=== PATIENT | male | born 1945 | race Caucasian/White ===

== ENCOUNTER 2022-03-16 11:07 | Inpatient (IN) | payer OTHER, MEDICARE ==
[~2022-03-16 11:07] MED LIST: Iopamidol 300 61% 100 ML VIAL FS ONE
[2022-03-16] MEDS ORDERED: Cefepime 2 GM VIAL ONE (12:01)
[2022-03-16 12:12] LABS: #Monocytes 0.5 10x3/uL (0.0-1.1); #Neutrophils 3.4 10x3/uL (1.5-8.4); %Basophils 0.2 % (0.0-2.0); %Eosinophils 0.4 % (0.0-6.0); %Lymphocytes 23.5 % (18.0-47.0); %Monocytes 9.3 % (0.0-10.0); %Neutrophils 66.2 % (40.0-75.0); Hemoglobin 9.3 g/dL (13.5-17.5); Mean Corpuscular HGB CONC 33.3 g/dL (32.0-36.0); Mean Corpuscular Hemoglobin 32.1 pg (27.0-33.0); Mean Corpuscular Volume 96.2 fl (81.2-95.1); Mean Platelet Volume 9.2 fl (7.4-10.4); Platelet Count 314 10x3/uL (150-450); RBC Distribution Width 14.5 % (11.5-14.5); White Blood Cell (WBC) Count 5.1 10x3/uL (3.5-10.5)
[2022-03-16 12:20] LABS: ALT (SGPT) 13 U/L (8-55); AST (SGOT) 19 U/L (5-34); Albumin 3.5 g/dL (3.4-4.8); Alkaline Phosphatase 116 U/L (40-110); Anion Gap 17 mmol/L (10-20); BUN (Urea Nitrogen) 14 mg/dL (8.4-25.7); Bilirubin, Total 0.8 mg/dL (0.2-1.2); CK (CPK) 34 U/L (30-200); Calc. Creatinine Clearance 0 mL/min (70-130); Calcium 8.6 mg/dL (7.8-10.44); Carbon Dioxide 21 mmol/L (23-31); Chloride 107 mmol/L (98-107); Globulin 2.9 g/dL (2.4-3.5); Glucose 113 mg/dL (83-110); Magnesium 1.5 mg/dL (1.6-2.6); Potassium 3.8 mmol/L (3.5-5.1); Protein, Total 6.4 g/dL (5.8-8.1); Sodium 141 mmol/L (136-145)
[2022-03-16] MEDS ORDERED: Magnesium 2 GM/50 ML BAG (IN WATER) ONE (13:16)
[2022-03-16 15:14] LABS: Lactic Acid 2.1 mmol/L (0.5-2.2)
[2022-03-16] MEDS ORDERED: Ondansetron ODT 4 MG TAB PO PRN (17:59)
[2022-03-16] MEDS ORDERED: Ondansetron PF 4 MG/2 ML Vial IVP PRN (17:59)
[2022-03-16] MEDS ORDERED: Acetaminophen 325 MG TAB PO PRN (18:41)
[2022-03-16] MEDS: Sodium Chloride 0.9% 1,000 ML IV SCH (19:56)
[2022-03-17 00:01] LABS: Bilirubin Neg (Negative); Blood, Urine Negative (Negative); Clarity Clear (Clear); Glucose, Urine (Dipstick) Normal (Negative); Ketone, Urine Negative (Negative); Leukocyte Negative (Negative); Nitrite Negative (Negative); Protein, Urine (Dipstick) Negative (Neg-Trace); Urobilinogen Normal mg/dL (Less than 2)
[2022-03-17 04:50] LABS: ALT (SGPT) 11 U/L (8-55); AST (SGOT) 14 U/L (5-34); Albumin 2.8 g/dL (3.4-4.8); Alkaline Phosphatase 88 U/L (40-110); Anion Gap 11 mmol/L (10-20); BUN (Urea Nitrogen) 13 mg/dL (8.4-25.7); Bilirubin, Total 0.5 mg/dL (0.2-1.2); Calc. Creatinine Clearance 58 mL/min (70-130); Calcium 7.7 mg/dL (7.8-10.44); Carbon Dioxide 23 mmol/L (23-31); Chloride 109 mmol/L (98-107); Globulin 2.2 g/dL (2.4-3.5); Glucose 75 mg/dL (83-110); Iron 58 ug/dL (65-175); Iron Binding Capacity, Total 163 mcg/dL (261-462); Magnesium 1.8 mg/dL (1.6-2.6); Potassium 3.1 mmol/L (3.5-5.1); Sodium 140 mmol/L (136-145)
[2022-03-17 05:05] LABS: #Monocytes 0.5 10x3/uL (0.0-1.1); #Neutrophils 2.6 10x3/uL (1.5-8.4); %Basophils 0.3 % (0.0-2.0); %Eosinophils 0.3 % (0.0-6.0); %Lymphocytes 19.6 % (18.0-47.0); %Monocytes 11.7 % (0.0-10.0); %Neutrophils 67.8 % (40.0-75.0); Hemoglobin 7.5 g/dL (13.5-17.5); Mean Corpuscular HGB CONC 34.1 g/dL (32.0-36.0); Mean Corpuscular Hemoglobin 32.5 pg (27.0-33.0); Mean Corpuscular Volume 95.2 fl (81.2-95.1); Mean Platelet Volume 9.2 fl (7.4-10.4); Platelet Count 209 10x3/uL (150-450); RBC Distribution Width 14.6 % (11.5-14.5); Red Blood Cell (RBC) Count 2.31 10x6/uL (4.32-5.72); White Blood Cell (WBC) Count 3.8 10x3/uL (3.5-10.5)
[2022-03-17 05:13] LABS: Ferritin 261.56 ng/mL (22-322)
[2022-03-17] MEDS ORDERED: Electrolyte Replacement Protocol 1 EACH FS SCH (08:15)
[2022-03-17] MEDS: Ferrous Sulfate 325 MG TAB PO SCH (08:30)
[2022-03-17] MEDS: Sodium Chloride 0.9% 1,000 ML IV SCH (08:30)
[2022-03-17] MEDS: Multivit, Therapeutic 1 TAB PO SCH (08:30)
[2022-03-17] MEDS: Aspirin 81 mg Enteric Coated Tablet PO SCH (08:31)
[2022-03-17] MEDS: Lisinopril 20 MG TAB PO SCH (08:31)
[2022-03-17] MEDS ORDERED: Potassium Chloride 20 MEQ TAB PO SCH (09:00)
[2022-03-17] MEDS ORDERED: Magnesium 2 GM/50 ML(in water) 2 GM in Premix Bag 1 BAG IVPB SCH (09:00)
[2022-03-17 10:01] LABS: SARS-CoV-2 NAA Rapid Test Not Detected (NotDetected)
[2022-03-17] MEDS ORDERED: Iron, Sodium Ferric Gluconate 250 MG in Sodium Chloride 0.9% 250 ML 250 ML IVPB SCH (12:00)
[2022-03-17 15:41] LABS: Hemoglobin 10.3 g/dL (13.5-17.5)
[2022-03-17 16:01] LABS: ALT (SGPT) 7 U/L (8-55); AST (SGOT) 14 U/L (5-34); Albumin 2.5 g/dL (3.4-4.8); Alkaline Phosphatase 78 U/L (40-110); Anion Gap 13 mmol/L (10-20); BUN (Urea Nitrogen) 12 mg/dL (8.4-25.7); Bilirubin, Total 0.3 mg/dL (0.2-1.2); Calc. Creatinine Clearance 51 mL/min (70-130); Calcium 7.4 mg/dL (7.8-10.44); Carbon Dioxide 16 mmol/L (23-31); Chloride 112 mmol/L (98-107); Globulin 2.2 g/dL (2.4-3.5); Glucose 125 mg/dL (83-110); Magnesium 2.5 mg/dL (1.6-2.6); Potassium 3.8 mmol/L (3.5-5.1); Protein, Total 4.7 g/dL (5.8-8.1); Sodium 137 mmol/L (136-145)
[2022-03-17 16:07] LABS: Troponin I 0.011 ng/mL (< 0.028)
[2022-03-17] MEDS: Mometasone/Formoterol 60 PUFF AER INH SCH (19:10)
[2022-03-17] MEDS: DULoxetine 30 MG CAP PO SCH (21:10)
[2022-03-17] MEDS: Atorvastatin Calcium 10 MG TAB PO SCH (21:10)
[2022-03-17] MEDS: Pantoprazole 40 MG VIAL IVP SCH (21:10)
[2022-03-18] MEDS: Sodium Chloride 0.9% 1,000 ML IV SCH ×2 (00:26→10:56)
[2022-03-18] MEDS: Vancomycin 25 MG/ML Oral SOLN PO SCH ×4 (01:35→20:53)
[2022-03-18] MEDS: Azithromycin 250 MG TAB PO SCH (01:35)
[2022-03-18] MEDS ORDERED: Azithromycin 200 MG/5 ML Oral Suspension PO SCH (02:00)
[2022-03-18 04:43] LABS: Hemoglobin 12.6 g/dL (13.5-17.5); Mean Corpuscular Volume 94.2 fl (81.2-95.1); Mean Platelet Volume 9.6 fl (7.4-10.4); Platelet Count 225 10x3/uL (150-450); RBC Distribution Width 15.6 % (11.5-14.5); Red Blood Cell (RBC) Count 3.94 10x6/uL (4.32-5.72); White Blood Cell (WBC) Count 11.3 10x3/uL (3.5-10.5)
[2022-03-18 05:42] LABS: Anion Gap 14 mmol/L (10-20); BUN (Urea Nitrogen) 16 mg/dL (8.4-25.7); Calc. Creatinine Clearance 30 mL/min (70-130); Carbon Dioxide 16 mmol/L (23-31); Chloride 112 mmol/L (98-107); Glucose 147 mg/dL (83-110); Magnesium 2.4 mg/dL (1.6-2.6); Potassium 3.8 mmol/L (3.5-5.1); Sodium 138 mmol/L (136-145)
[2022-03-18] MEDS: Mometasone/Formoterol 60 PUFF AER INH SCH ×2 (07:24→19:05)
[2022-03-18] MEDS: Lisinopril 20 MG TAB PO SCH (09:06)
[2022-03-18] MEDS: Ferrous Sulfate 325 MG TAB PO SCH (09:06)
[2022-03-18] MEDS: Aspirin 81 mg Enteric Coated Tablet PO SCH (09:07)
[2022-03-18] MEDS: Pantoprazole 40 MG VIAL IVP SCH ×2 (09:07→20:53)
[2022-03-18] MEDS: Multivit, Therapeutic 1 TAB PO SCH (09:07)
[2022-03-18] MEDS: DULoxetine 30 MG CAP PO SCH (20:52)
[2022-03-18] MEDS: Atorvastatin Calcium 10 MG TAB PO SCH (20:52)
[2022-03-19] MEDS: Sodium Chloride 0.9% 1,000 ML IV SCH ×2 (01:23→20:53)
[2022-03-19] MEDS: Azithromycin 250 MG TAB PO SCH (01:23)
[2022-03-19] MEDS: Vancomycin 25 MG/ML Oral SOLN PO SCH ×4 (02:24→20:55)
[2022-03-19 04:35] LABS: Anion Gap 16 mmol/L (10-20); BUN (Urea Nitrogen) 15 mg/dL (8.4-25.7); Calc. Creatinine Clearance 35 mL/min (70-130); Calcium 7.8 mg/dL (7.8-10.44); Carbon Dioxide 13 mmol/L (23-31); Chloride 113 mmol/L (98-107); Glucose 86 mg/dL (83-110); Potassium 3.9 mmol/L (3.5-5.1); Sodium 138 mmol/L (136-145)
[2022-03-19 05:31] VITALS: BMI 16.5
[2022-03-19 05:46] LABS: Hemoglobin 9.7 g/dL (13.5-17.5); Mean Corpuscular HGB CONC 34.8 g/dL (32.0-36.0); Mean Corpuscular Hemoglobin 31.4 pg (27.0-33.0); Mean Corpuscular Volume 90.3 fl (81.2-95.1); Mean Platelet Volume 10.1 fl (7.4-10.4); Platelet Count 148 10x3/uL (150-450); RBC Distribution Width 15.6 % (11.5-14.5); Red Blood Cell (RBC) Count 3.09 10x6/uL (4.32-5.72); White Blood Cell (WBC) Count 6.7 10x3/uL (3.5-10.5)
[2022-03-19] MEDS: Mometasone/Formoterol 60 PUFF AER INH SCH ×2 (07:04→18:33)
[2022-03-19] MEDS: Ferrous Sulfate 325 MG TAB PO SCH (08:07)
[2022-03-19] MEDS: Multivit, Therapeutic 1 TAB PO SCH (08:08)
[2022-03-19] MEDS: Aspirin 81 mg Enteric Coated Tablet PO SCH (08:08)
[2022-03-19] MEDS: Tamsulosin HCl 0.4 MG CAP PO SCH (08:08)
[2022-03-19] MEDS: Pantoprazole 40 MG VIAL IVP SCH (08:08)
[2022-03-19] MEDS: Lisinopril 20 MG TAB PO SCH (08:08)
[2022-03-19] MEDS ORDERED: Amlodipine 5 MG TAB PO SCH (09:00)
[2022-03-19] MEDS: DULoxetine 30 MG CAP PO SCH (20:56)
[2022-03-19] MEDS: Atorvastatin Calcium 10 MG TAB PO SCH (20:56)
[2022-03-20] MEDS: Azithromycin 250 MG TAB PO SCH (03:03)
[2022-03-20] MEDS: Sodium Chloride 0.9% 1,000 ML IV SCH ×2 (03:03→18:40)
[2022-03-20] MEDS: Vancomycin 25 MG/ML Oral SOLN PO SCH ×4 (03:03→20:18)
[2022-03-20 05:02] LABS: Hemoglobin 8.4 g/dL (13.5-17.5); Mean Corpuscular HGB CONC 35.1 g/dL (32.0-36.0); Mean Corpuscular Hemoglobin 32.1 pg (27.0-33.0); Mean Corpuscular Volume 91.2 fl (81.2-95.1); Mean Platelet Volume 9.3 fl (7.4-10.4); Platelet Count 133 10x3/uL (150-450); Red Blood Cell (RBC) Count 2.62 10x6/uL (4.32-5.72)
[2022-03-20] MEDS: Levothyroxine Sodium 25 MCG TAB PO SCH (05:19)
[2022-03-20] MEDS: Mometasone/Formoterol 60 PUFF AER INH SCH ×2 (07:42→19:30)
[2022-03-20] MEDS ORDERED: Hydrochlorothiazide 25 MG TAB PO SCH (10:45)
[2022-03-20] MEDS: Tamsulosin HCl 0.4 MG CAP PO SCH (11:38)
[2022-03-20] MEDS: Aspirin 81 mg Enteric Coated Tablet PO SCH (11:38)
[2022-03-20] MEDS: Ferrous Sulfate 325 MG TAB PO SCH (11:38)
[2022-03-20] MEDS: Multivit, Therapeutic 1 TAB PO SCH (11:38)
[2022-03-20] MEDS: Lisinopril 20 MG TAB PO SCH (11:38)
[2022-03-20] MEDS: Atorvastatin Calcium 10 MG TAB PO SCH (20:18)
[2022-03-20] MEDS: DULoxetine 30 MG CAP PO SCH (20:18)
[2022-03-21] MEDS: Sodium Chloride 0.9% 1,000 ML IV SCH (01:11)
[2022-03-21] MEDS ORDERED: Azithromycin 250 MG TAB PO SCH (05:00)
[2022-03-21 05:08] LABS: Hemoglobin 8.9 g/dL (13.5-17.5); Mean Corpuscular HGB CONC 34.4 g/dL (32.0-36.0); Mean Corpuscular Hemoglobin 31.8 pg (27.0-33.0); Mean Corpuscular Volume 92.5 fl (81.2-95.1); Mean Platelet Volume 9.3 fl (7.4-10.4); Platelet Count 147 10x3/uL (150-450); RBC Distribution Width 14.5 % (11.5-14.5); White Blood Cell (WBC) Count 4.5 10x3/uL (3.5-10.5)
[2022-03-21 05:22] LABS: Anion Gap 13 mmol/L (10-20); BUN (Urea Nitrogen) 6 mg/dL (8.4-25.7); Calc. Creatinine Clearance 63 mL/min (70-130); Calcium 7.5 mg/dL (7.8-10.44); Carbon Dioxide 19 mmol/L (23-31); Chloride 104 mmol/L (98-107); Glucose 84 mg/dL (83-110); Sodium 133 mmol/L (136-145)
[2022-03-21 05:31] LABS: Potassium 2.5 mmol/L (3.5-5.1)
[2022-03-21] MEDS: Levothyroxine Sodium 25 MCG TAB PO SCH (05:35)
[2022-03-21] MEDS: Vancomycin 25 MG/ML Oral SOLN PO SCH ×2 (05:36→12:42)
[2022-03-21] MEDS ORDERED: Potassium Chloride 20 MEQ TAB PO SCH ×3 (05:45→13:00)
[2022-03-21 05:55] VITALS: TEMP 99
[2022-03-21 06:02] LABS: Magnesium 1.5 mg/dL (1.6-2.6)
[2022-03-21] MEDS ORDERED: Magnesium Oxide 400 MG TAB PO SCH ×2 (06:30→13:30)
[2022-03-21] MEDS ORDERED: Magnesium 2 GM/50 ML(in water) 2 GM in Premix Bag 1 BAG IVPB SCH (06:30)
[2022-03-21] MEDS: Mometasone/Formoterol 60 PUFF AER INH SCH (07:40)
[2022-03-21] MEDS ORDERED: Hydrochlorothiazide 25 MG TAB PO SCH (09:00)
[2022-03-21] MEDS: Ferrous Sulfate 325 MG TAB PO SCH (09:00)
[2022-03-21] MEDS: Lisinopril 20 MG TAB PO SCH (09:00)
[2022-03-21] MEDS: Aspirin 81 mg Enteric Coated Tablet PO SCH (09:00)
[2022-03-21] MEDS: Tamsulosin HCl 0.4 MG CAP PO SCH (09:01)
[2022-03-21] MEDS: Multivit, Therapeutic 1 TAB PO SCH (09:01)
[2022-03-21 09:42] VITALS: BP 150/70
[2022-03-21 12:39] LABS: Potassium 3.5 mmol/L (3.5-5.1)
== END 2022-03-21 16:29 | disposition home health service (06) | DRG 371 ==
LOC: CSHERS 11:07 → INTOOBSV 17:31 → CSHTELE 17:31 → CSHIMCU 03-17 17:51 → OBSVTOIN 03-17 19:38 → CSHTELE 03-19 20:37
PROVIDERS: ADMIT Internal Medicine; ATTEND Internal Medicine
PROC: 30233N1 Transfusion of Nonautologous Red Blood Cells into Peripheral Vein, Percutaneous Approach (ICD-10-PCS; principal; 2022-03-17)
PROC: 0T9B70Z Drainage of Bladder with Drainage Device, Via Natural or Artificial Opening (ICD-10-PCS; 2022-03-19)
DX: A04.72 Enterocolitis due to Clostridium difficile, not specified as recurrent (principal); E43 Unspecified severe protein-calorie malnutrition; J18.9 Pneumonia, unspecified organism; E87.2 Acidosis; Z68.1 Body mass index [BMI] 19.9 or less, adult; J90 Pleural effusion, not elsewhere classified; J98.11 Atelectasis; J44.0 Chronic obstructive pulmonary disease with (acute) lower respiratory infection; A04.5 Campylobacter enteritis; I10 Essential (primary) hypertension; D64.9 Anemia, unspecified; E83.42 Hypomagnesemia; E87.6 Hypokalemia; F41.9 Anxiety disorder, unspecified; E86.0 Dehydration; L89.152 Pressure ulcer of sacral region, stage 2; W19.XXXA Unspecified fall, initial encounter; I95.9 Hypotension, unspecified; Z20.822 Contact with and (suspected) exposure to COVID-19; R33.9 Retention of urine, unspecified; Z79.82 Long term (current) use of aspirin; Z79.899 Other long term (current) drug therapy; Z86.73 Personal history of transient ischemic attack (TIA), and cerebral infarction without residual deficits; Z85.89 Personal history of malignant neoplasm of other organs and systems; Z98.890 Other specified postprocedural states; Y92.9 Unspecified place or not applicable
CPT/HCPCS: 36415; 36430; 70450; 71045; 72170; 74177; 80048; 80053; 81003; 82274; 82550; 82607; 82728; 82746; 83540; 83550; 83605; 83630; 83735; 83880; 84484; 85025; 85027; 86850; 86900; 86901; 87040; 87045; 87046; 87324; 87427; 87449; 87493; 93005; 93010; 94760; 96365; 96366; 96367; 96368; 96375; 96376; C9113; G0378; J0692; J2916; J3370; J3475; J7050; P9016; Q9967; U0002

== ENCOUNTER 2022-03-25 12:23 | Emergency (ER) | payer OTHER, MEDICARE ==
[2022-03-25 12:50] LABS: Bilirubin 1+ (Negative); Blood, Urine 25 (Negative); Clarity Clear (Clear); Glucose, Urine (Dipstick) Normal (Negative); Ketone, Urine 150 mg/dL (Negative); Leukocyte 25 (Negative); Nitrite Negative (Negative); Protein, Urine (Dipstick) 30 mg/dl (Neg-Trace); Specific Gravity, Urine 1.025 (1.002-1.036); Urobilinogen Normal mg/dL (Less than 2)
[2022-03-25 13:21] LABS: #Monocytes 0.6 10x3/uL (0.0-1.1); #Neutrophils 3.7 10x3/uL (1.5-8.4); %Basophils 0.2 % (0.0-2.0); %Eosinophils 0.4 % (0.0-6.0); %Lymphocytes 16.6 % (18.0-47.0); %Monocytes 10.7 % (0.0-10.0); %Neutrophils 71.5 % (40.0-75.0); Mean Corpuscular Hemoglobin 31.9 pg (27.0-33.0); Mean Corpuscular Volume 91.2 fl (81.2-95.1); Mean Platelet Volume 8.5 fl (7.4-10.4); Platelet Count 259 10x3/uL (150-450); RBC Distribution Width 14.5 % (11.5-14.5); Red Blood Cell (RBC) Count 3.76 10x6/uL (4.32-5.72); White Blood Cell (WBC) Count 5.1 10x3/uL (3.5-10.5)
[2022-03-25 13:26] LABS: Bacteria/HPF Rare-Few HPF (None Seen); Squamous Epithelial 0-3 HPF (0-3)
[2022-03-25 13:38] LABS: ALT (SGPT) 10 U/L (8-55); AST (SGOT) 16 U/L (5-34); Albumin 3.5 g/dL (3.4-4.8); Alkaline Phosphatase 91 U/L (40-110); Anion Gap 19 mmol/L (10-20); BUN (Urea Nitrogen) 13 mg/dL (8.4-25.7); Bilirubin, Total 0.5 mg/dL (0.2-1.2); Calc. Creatinine Clearance 0 mL/min (70-130); Calcium 8.6 mg/dL (7.8-10.44); Carbon Dioxide 19 mmol/L (23-31); Chloride 101 mmol/L (98-107); Globulin 2.6 g/dL (2.4-3.5); Glucose 119 mg/dL (83-110); Potassium 3.3 mmol/L (3.5-5.1); Protein, Total 6.1 g/dL (5.8-8.1); Sodium 136 mmol/L (136-145)
== END 2022-03-25 20:35 ==
LOC: CSHERS 12:23
DX: R53.1 Weakness (principal); Z20.822 Contact with and (suspected) exposure to COVID-19
CPT/HCPCS: 36415; 80053; 81003; 81015; 84484; 85025; 87086; 93005